=== PATIENT | male | born 1960 | race Caucasian/White ===

== ENCOUNTER 2024-10-10 08:45 | Outpatient (CLI) | payer OTHER ==
[~2024-10-10] VITALS: Ht 175.3 cm; Wt 68.0 kg
[2024-10-10] MEDS: albuterol 2.5 MG/3 ML nebule NEB ONE (09:29)
[2024-10-10 09:40] VITALS: PULSE 68; RESP 14; O2SAT 98
[2024-10-10 09:54] VITALS: PULSE 65; RESP 16
== END 2024-10-10 23:59 | disposition home or self-care (01) ==
LOC: RT 08:45
PROVIDERS: ATTEND Chiropractor
DX: J45.909 Unspecified asthma, uncomplicated (principal)
CPT/HCPCS: 94060; 94760; J7030; A6213

== ENCOUNTER 2024-11-18 09:42 | Outpatient (CLI) | payer OTHER | END 2024-11-18 23:59 | disposition home or self-care (01) | LOC: RAD 09:42 | PROVIDERS: ATTEND Chiropractor | DX: M25.562 Pain in left knee (principal) | CPT/HCPCS: 73564 ==